=== PATIENT | female | born 2000 | race Caucasian/White ===

== ENCOUNTER 2023-02-20 11:49 | Emergency (ER) | payer SELFPAY ==
[~2023-02-20] VITALS: Ht 165.1 cm; Wt 75.9 kg
[2023-02-20 11:51] VITALS: BP 123/84; TEMP 97; O2SAT 99
== END 2023-02-20 13:46 | disposition left against medical advice (07) ==
LOC: M ED 13:08
DX: Z53.21 Procedure and treatment not carried out due to patient leaving prior to being seen by health care provider (principal)